=== PATIENT | female | born 1985 | race American Indian/Alaskan Native ===

== ENCOUNTER 2017-01-30 11:28 | Emergency (ER) | payer MEDICAID, OTHER ==
[2016-09-21 11:03] VITALS: BMI 27.4
[2017-01-30] MEDS ORDERED: Lactated Ringer's 1,000 ML IV ONE (11:56)
[2017-01-30 12:09] LABS: RBC URINE 6 /hpf (0-3); URINE BACTERIA OCC (<OCC); URINE BILIRUBIN NEGATIVE (NEGATIVE); URINE BLOOD NEGATIVE (NEGATIVE); URINE CALCIUM OXALATE CRYSTALS FEW /hpf (<OCC); URINE COLOR Amber (YELLOW); URINE GLUCOSE (UA) 2+ mg/dL (Normal); URINE KETONE NEGATIVE (NEGATIVE); URINE LEUKOCYTE ESTERASE 1+ Leu/uL (Negative); URINE PROTEIN 1+ mg/dL (NEGATIVE); URINE UROBILINOGEN NORMAL mg/dL (0.2-1.0); WBC URINE 17 /hpf (0-5)
--- NOTE | 2017-01-30 14:16 | OBHP ---
Datetime: 01/30/2017 11:53 IP Chief Complaint Other: Lower abdominal pressure IP Admit Plan: Observation/Evaluation Admit Comment, IP Provider: 31 yo [id number], ANASTASIYA 03/29/17, EGA 31w 5d by sono 08/29/16 at 9w 2d, presents c/o vaginal pressure onset 2 days, 01/28/17 while in kitchen cooing wiht family members; then occ ctx , onset 01/20/17 approx 2130 hours, pain scale 7/10; took no meds, nor went to any other insitution fo r evaluation. Then, while walkng from Welfare office, earlier, felt more pressure again - came in to be evaluated. (+) AFM; denies LOF, VB. Last had vaginal intercourse 5 days ago. (+) urinary frequency x 2 days; denies dysuria; +/- odor to urine. care: [facility]; last visit December, - "I missed all of January. I have an appointment 02/07, 11:15 am" Did not do GCT. Denies any other is sues, except being seen every 2 weeks for h/o deliveries. P Ob: x 2, both ; both males: 2007, 4lb 3oz, at "7 months". 2008, 4lb 8oz, at "8 months "; [place] [facility] [place] infant had 1-2 weeks hospital stay after delivery. VTOP x 2, both first trimes ter, with D_C; no complications. Spont Ab. x 1 - Freshman year [employer] "I didnt know I was " ; with D_C P [employer]: 13 x monthly x 7. 2007, (+) chlamydia PMH: denies PSH: D_C 3 NKDA Meds: PNV Soc Hx: Smokes less than 1/2 ppd since age 13; now, "2 pulls per day" denies illicit drug or EtOH use. Drank wine before . With FOB x 1yr 4months; Lives wiht her aunt; her 2 sons are with he r grandmother. Unempooyed. Fam Hx: Mother when patient age 6. Father - S/P IA. (+) fam h/o HTN. No known fa m h/o cancer P.E.: as above. WD in NAD. Appears drowsy. Otherwise, awake, alert oriented to time, person and pl eleni. Pleasant and cooperative Assessment: 31 yo [id number], 31w 5d, 2 day h/o lower abdominal cramps. No cervical dilatation. No cont ractions. Patient drinks very little water: only soda and occasionally juice. Possible BV - c/o musty vaginal odor. Category 1 tracing. Poor complicance with care recently: patient advised of i mportance of keeing said appointmetns, brenda in light of recenty missed GCT. Patient also advised of im portance bar increase water intake. Clincallys table. Plan: 1) IVFs 2) U/A 3) UDS 4) Monitor/observe Addendum: 1400 hours - S/P IVFs - states not feeling any difference (looks more at eaase; not flinching). Hungry - Repeat cervical exam: unchanged. No contracitons - labs: U/A leuk esterase 1+; WBC 17; RBC 6 ssessment: Early UTI. Perineal care reinforced. Also, to increase p.o. intake of water; add cranbe rry juice at least once a day. Minimize juice and cody-aid consumption. Counseled on importance of ke eping appointments; also counseled on taking antibiotics as prescribed. Category 1 tracing. Clinically stable. Plan: 1) Discharge home 2) Rx: Keflex 500 mg p.o. TID x 7 days 3) labor precautions 4) Keep visit, 02/07/17 Pelvic Type - PN: Adequate Extremities - PN: Normal Abdomen - PN: Normal Back - PN: Normal Breast - PN: Not Done Lungs - PN: Normal Heart - PN: Normal Thyroid - PN: Not Done Neurologic - PN: Normal HEENT - PN: Normal General - PN: Normal Presentation-Admit: Vertex FHR - Baseline A Provider: 145 Comments, ACOG Physical Exam: Skin: warm, dry, kntact; (+) tattooes upper extremities Abdomen: non tendern in all quadrants' no suprapubic tenderness. Gravid. Soft. Fundal height 30 cm All other systems reviewed and are negative Gestation - Est Wks by US: 31w 5d EGA AdmitDate IP: 31.5 Vital Signs Provider: Reviewed; Within Normal Limits IP Chief Complaint: Maternal discomfort; Other NICHD Variability Prov Fetus A: Moderate 6-25bpm FHR Category Provider Fetus A: Category I NICHD Decel Fetus A IP Provider: None Dilatation, Provider: 0 Effacement, Provider: 0 Station, Provider: n/a Genitourinary Exam: Normal DTRs - PN: Not Done
== END 2017-01-30 13:49 | disposition home or self-care (01) ==
LOC: C.EROB 11:28
DX: O23.43 Unspecified infection of urinary tract in pregnancy, third trimester (principal); Z3A.31 31 weeks gestation of pregnancy
CPT/HCPCS: 80324; 80345; 80346; 80349; 80353; 80358; 80361; 81001; 83992; 99283; J7120

== ENCOUNTER 2018-05-15 16:24 | Emergency (ER) | payer MEDICAID ==
[2018-05-15 16:24] VITALS: BMI 27.4
[2018-05-15 16:49] VITALS: TEMP 98.2
--- NOTE | 2018-05-15 18:16 | C.PDOC ---
"History Of Present Illness 33 year old female presents to the ER with a complaint of vague generalized abdominal discomfort for the past 2 days. Patient's LMP was in November and she reports recently having a positive test. Denies vaginal discharge or vaginal bleeding. Time Seen by Provider: 05/15/18 18:07 Chief Complaint (Nursing): GI Problem History Per: Patient History/Exam Limitations: no limitations Onset/Duration Of Symptoms: Days Current Symptoms Are (Timing): Still Present Radiation Of Pain To:: None Quality Of Discomfort: Unable To Describe Associated Symptoms: denies: Other (Vaginal discharge) Exacerbating Factors: None Alleviating Factors: None Recent travel outside of the [place]: No Abnormal Vaginal Bleeding: No Past Medical History Reviewed: Historical Data, Nursing Documentation, Vital Signs Vital Signs: Last Vital Signs Temp 98.2 F 05/15/18 16:45 Pulse 100 H 05/15/18 16:45 Resp 14 05/15/18 16:45 BP 100/64 05/15/18 16:45 Pulse Ox 100 05/15/18 21:53 - Medical History PMH: Denies: Chronic Kidney Disease Family History: States: Unknown Family Hx - Social History Hx Tobacco Use: Yes Hx Alcohol Use: No Hx Substance Use: No - Immunization History Hx Tetanus Toxoid Vaccination: No Hx Influenza Vaccination: No Hx Pneumococcal Vaccination: No Review Of Systems Constitutional: Negative for: Fever, Chills Cardiovascular: Negative for: Chest Pain, Palpitations Respiratory: Negative for: Cough, Shortness of Breath Gastrointestinal: Positive for: Abdominal Pain Genitourinary: Negative for: Vaginal Discharge, Vaginal Bleeding Neurological: Negative for: Weakness, Numbness Physical Exam - Physical Exam Appears: Non-toxic Skin: Normal Color, Warm, Dry Head: Atraumatic, Normacephalic Eye(s): bilateral: Normal Inspection Oral Mucosa: Moist Neck: Normal, Supple Chest: Symmetrical, No Tenderness Cardiovascular: Rhythm Regular Respiratory: Normal Breath Sounds, No Rales, No Rhonchi, No Wheezing Gastrointestinal/Abdominal: Soft, No Tenderness, Other (Rotund) Back: No CVA Tenderness Neurological/Psych: Oriented x3, Normal Speech ED Course And Treatment - Laboratory Results Lab Interpretation: Normal (UA unremarkable) Urine POC: Positive O2 Sat by Pulse Oximetry: 100 (Room air) Pulse Ox Interpretation: Normal - CT Scan/US pelvic US Other Rad Studies (CT/US): Read By Radiologist, Radiology Report Reviewed CT/US Interpretation: EXAM: US Uterus, Limited. CLINICAL HISTORY: 33 years old, female; Pain; complicated by abdominal or pelvic pain; Generalized. abdominal pain; Second trimester; Gestational age or lmp: 15wks 0d ; ; Additional info: abd pain. TECHNIQUE: Real-time ultrasound of the maternal uterus (limited) with image documentation. COMPARISON: No relevant prior studies available. FINDINGS: there is an intrauterine gestational sac with the developing fetus. heart rate is 150 bpm. The fetus is in breech presentation. The amniotic fluid is normal in volume. The placenta is posterior without a previa. A complete anatomic survey was not performed no gross somatic deformities are seen. measurements: BPD 2.9 cm 15 weeks 2 days. HC 10.6 cm 15 weeks. A.C. 8.6 cm 15 weeks. FL 1.5 cm 14 weeks 4 days. EFW 105.92 g plus or -15.89 g. Ultrasound gestational age 15 weeks ANASTASIYA 11/06/2018. The ovaries are negative for focal abnormality and demonstrate normal blood flow. The RIGHT ovary measures 4 cm x 1.6 cm x 3.4 cm. The LEFT ovary measures 3.6 cm x 1.7 cm x 3.7 cm. The uterus shows unremarkable myometrial echogenicity. The cervix measures 3.1 cm the cervical os is closed. TYSON MATUTE | Preliminary Radiology Report. CONFIDENTIALITY STATEMENT. This report is intended only for the use of the referring physician , and only in accordance with law, If you received this in error, call . Page 2 of 2. IMPRESSION: 1. Single living intrauterine . 2. Gestational age 15 weeks ANASTASIYA 11/06/2018. 3. Negative for gross anatomic deformities. 4. Negative examination of the ovaries. 5. Negative uterus and cervix. Thank you for allowing us to participate in the care of your patient. Dictated and Authenticated by: Eagle Soriano MD. 05/15/2018 9:51 PM Eastern Time ([place] & [place]) Progress Note: Urinalysis ordered. Disposition Counseled Patient/Family Regarding: Studies Performed, Diagnosis, Need For Followup - Disposition Referrals: [facility] [Outside] Disposition: HOME/ ROUTINE Disposition Time: 21:58 Condition: STABLE Instructions: - The Fourth Month Forms: [facility] (Polish) - Clinical Impression Clinical Impression: - Scribe Statement The provider has reviewed the documentation as recorded by the Scribe Lexx Kumar All medical record entries made by the Scribe were at my direction and personally dictated by me. I have reviewed the chart and agree that the record accurately reflects my personal performance of the history, physical exam, medical decision making, and the department course for this patient. I have also personally directed, reviewed, and agree with the discharge instructions and disposition."
[2018-05-15 19:37] LABS: HCG,QUALITATIVE URINE POSITIVE (NEGATIVE)
[2018-05-15 19:52] LABS: SQUAMOUS EPITHIAL 9 /hpf (0-5); URINE BACTERIA FEW (<OCC); URINE BILIRUBIN NEGATIVE (NEGATIVE); URINE BLOOD NEGATIVE (NEGATIVE); URINE CALCIUM OXALATE CRYSTALS FEW /hpf (<OCC); URINE CLARITY Hazy (Clear); URINE COLOR Yellow (YELLOW); URINE GLUCOSE (UA) NORMAL (Normal); URINE LEUKOCYTE ESTERASE TRACE Leu/uL (Negative); URINE PROTEIN NEGATIVE (NEGATIVE); URINE UROBILINOGEN NORMAL mg/dL (0.2-1.0)
[2018-05-15 22:12] VITALS: BP 116/69; PULSE 86; RESP 18; O2SAT 98
--- NOTE | 2018-05-16 11:23 | US ---
OB , limited Comparison: None available Technique: Real-time ultrasound was performed through the pelvis. Findings: There is a single living fetus in breech presentation. Posterior placenta. The placenta is not previa. The right ovary measures approximately 4.0 x 1.7 x 3.4 cm. The left ovary measures approximately 3.7 x 1.8 x 3.8 cm. There are no adnexal masses or cysts evident. Cervix length measures approximately 3.0 cm. Measurements and calculations: Fetus has a composite sonographic age of 15 weeks 0 days. This calculation is based on the biparietal diameter, head circumference, abdominal circumference, and femur length. Estimated heart rate 150.2 beats per min. Impression: Single living fetus with a composite sonographic age of 15 weeks 0 days. Estimated heart rate 150.2 beats per min. Advise an anomaly screen at 16-18 weeks gestational age. Preliminary impression was provided by virtual radiologic.
== END 2018-05-15 22:11 | disposition home or self-care (01) ==
LOC: C.ER 16:24
DX: O26.892 Other specified pregnancy related conditions, second trimester (principal); Z3A.15 15 weeks gestation of pregnancy